=== PATIENT | male | born 1995 | race Caucasian/White ===

== ENCOUNTER 2017-10-07 18:37 | Emergency (ER) | payer MEDICAID ==
[~2017-10-07] VITALS: Ht 177.8 cm; Wt 69.0 kg
[2017-10-07 19:22] VITALS: BP 158/57; Ht 177.8 cm; Wt 69.0 kg
== END 2017-10-07 20:18 | disposition left against medical advice (07) ==
LOC: ED 18:37
DX: Z53.21 Procedure and treatment not carried out due to patient leaving prior to being seen by health care provider (principal)

== ENCOUNTER 2017-10-07 21:06 | Emergency (ER) | payer MEDICAID ==
[~2017-10-07] VITALS: Ht 177.8 cm; Wt 68.9 kg
[2017-10-07 21:40] VITALS: Ht 177.8 cm; Wt 68.9 kg
[2017-10-08 01:31] VITALS: BP 128/76
== END 2017-10-08 01:31 | disposition home or self-care (01) ==
LOC: ED 21:06
DX: S61.111A Laceration without foreign body of right thumb with damage to nail, initial encounter (principal); W22.8XXA Striking against or struck by other objects, initial encounter; Y93.89 Activity, other specified; Y92.89 Other specified places as the place of occurrence of the external cause; Y99.8 Other external cause status
CPT/HCPCS: 90715; J2001

== ENCOUNTER 2018-08-31 11:23 | Emergency (ER) | payer MEDICAID ==
[~2018-08-31] VITALS: Ht 180.3 cm; Wt 74.8 kg
[2018-08-31 11:35] VITALS: Ht 180.3 cm; Wt 74.8 kg
[2018-08-31 12:38] LABS: BASOPHIL % 0.3 % (0-2); PLATELET COUNT 228 x10^3mcL (130-400); RED CELL DISTRIBUTION WIDTH 13.7 % (11.5-14.5)
[2018-08-31 12:51] LABS: CALCIUM 9.4 mg/dL (8.5-10.1); CARBON DIOXIDE 27.6 mmol/L (21-32); CHLORIDE SERUM 102 mmol/L (98-107); CREATININE SERUM 1.2 mg/dL (0.7-1.3); GFR1 > 60 mL/min; GLUCOSE SERUM 95 mg/dL (74-106); POTASSIUM SERUM 3.8 mmol/L (3.5-5.1); SODIUM SERUM 138 mmol/L (136-145)
[2018-08-31 12:53] LABS: ALBUMIN 4.3 g/dL (3.4-5.0); ALKALINE PHOSPHATASE 66 U/L (46-116); ALT/SGPT 30 U/L (16-63); AST/SGOT 11 U/L (15-37); BILIRUBIN TOTAL 0.6 mg/dL (0.20-1.00); TOTAL PROTEIN, SERUM 8.1 g/dL (6.4-8.2)
[2018-08-31 13:34] LABS: AMPHETAMINE QUAL UR NONE DETECTED (See below)
[2018-08-31 14:46] VITALS: BP 139/59
== END 2018-08-31 14:46 | disposition home or self-care (01) ==
LOC: ED 11:23
PROVIDERS: Emergency Medicine
DX: R07.89 Other chest pain (principal); M54.6 Pain in thoracic spine
CPT/HCPCS: 36415; 85378; Q0092

== ENCOUNTER 2019-11-12 23:02 | Emergency (ER) | payer OTHER ==
[~2019-11-12] VITALS: Ht 177.8 cm; Wt 78.0 kg
[2019-11-12 23:09] VITALS: Ht 177.8 cm; Wt 78.0 kg
[2019-11-13 01:04] VITALS: BP 115/61
== END 2019-11-13 01:05 | disposition home or self-care (01) ==
LOC: ED 23:02
DX: R51 Headache (principal); R42 Dizziness and giddiness; R11.10 Vomiting, unspecified; R07.89 Other chest pain